=== PATIENT | male | born 1960 | race Caucasian/White ===

== ENCOUNTER 2021-09-05 17:27 | Inpatient (IN) | payer OTHER ==
[2021-09-05] MEDS ORDERED: ACETAMINOPHEN 1000 MG/100 ML BAG IVPB ONE (19:21)
[2021-09-05] MEDS ORDERED: ACETAMINOPHEN INJECTION 100 ML IVPB ONE (19:58)
[2021-09-05] MEDS ORDERED: DEXAMETHASONE SOD PHOSPHATE 10 MG/1 ML VIAL IVPUSH ONE (20:36)
[2021-09-05] MEDS ORDERED: ALBUTEROL SO4 2.5/IPRATROPIUM 0.5 INH SOL 3 ML VIAL.NEB. NEB ONE ×2 (20:36→21:07)
[2021-09-05 20:47] LABS: BASO % 0.4 % (0-2.0); EOS % 0.8 % (0-4.5); HEMATOCRIT 39.1 % (35.4-49); HEMOGLOBIN 12.6 GM/dL (11.7-16.9); LYMPH % 9.3 % (8-40); MCH 20.6 pg (25.7-33.7); MCHC 32.1 g/dl (32.0-35.9); MEAN PLT VOLUME 9.1 fl (7.5-11.1); MONO % 11.8 % (3.8-10.2); NEUT % 77.7 % (42.8-82.8); PLATELET COUNT 247 10^3/uL (134-434); RBC 6.11 M/mm3 (4.00-5.60); RDW 16.1 % (11.9-15.9); WHITE BLOOD COUNT 11.1 K/mm3 (4.0-10.0)
[2021-09-05 20:54] LABS: INR 1.36 (0.83-1.09); PROTHROMBIN TIME (PATIENT) 15.7 SEC (9.7-13.0)
[2021-09-05] MEDS ORDERED: CEFTRIAXONE 1 GM in DEXTROSE 5%-WATER - 100 ML IVPB ONE (20:55)
[2021-09-05] MEDS ORDERED: AZITHROMYCIN IVPB 500 MG in DEXTROSE 5%-WATER - 250 ML IVPB ONE (20:55)
[2021-09-05] MEDS ORDERED: SODIUM CHLORIDE 0.9% 500 ML INFUS.BAG IV ONE (20:56)
[2021-09-05 20:57] LABS: ACTIVATED PTT 27.4 SECONDS (25.2-36.5)
[2021-09-05] MEDS ORDERED: CEFTRIAXONE 1 GM/50 ML BAG ONE (21:07)
[2021-09-05] MEDS ORDERED: DEXAMETHASONE SOD PHOSPHATE 10 MG/1 ML VIAL ONE (21:07)
[2021-09-05 21:08] LABS: ALBUMIN 3.3 g/dl (3.4-5.0); BLOOD UREA NITROGEN 6.6 mg/dL (7-18); CALCIUM 9.3 mg/dL (8.5-10.1); MAGNESIUM 1.8 mg/dL (1.8-2.4)
[2021-09-05 21:11] LABS: CREATININE 0.8 mg/dL (0.55-1.3)
[2021-09-05 21:13] LABS: BILIRUBIN,TOTAL 0.6 mg/dL (0.2-1); TOT PROT 7.1 g/dl (6.4-8.2)
[2021-09-05 21:16] LABS: N-TERMINAL BNP 20.9 pg/ml (5-125)
[2021-09-05 22:20] LABS: ANISOCYTOSIS 2+; MACROCYTOSIS 0; PLATELET ESTIMATE NORMAL; TEAR DROP CELLS 1+
[2021-09-06] MEDS ORDERED: AZITHROMYCIN IVPB 500 MG/250 ML BAG IVPB ONE (00:19)
[2021-09-06] MEDS ORDERED: ACETAMINOPHEN 325 MG TABLET (FP) PO PRN (02:37)
[2021-09-06] MEDS ORDERED: ALBUTEROL SO4 2.5/IPRATROPIUM 0.5 INH SOL 3 ML VIAL.NEB. NEB PRN (03:05)
[2021-09-06] MEDS ORDERED: INSULIN (NOVOLOG) ASPART 100 UNITS/ML 10ML VIAL ONE ×3 (03:51→21:02)
[2021-09-06] MEDS: INSULIN SLIDING SCALE (NOVOLOG) 1 VIAL SQ SCH ×5 (03:55→21:10)
[2021-09-06 05:08] VITALS: BMI 27.1
[2021-09-06 06:32] LABS: PH,URINE 7.5 (5.0-8.0); URINE APPEARANCE CLEAR; URINE BILIRUBIN NEGATIVE (NEGATIVE); URINE COLOR YELLOW; URINE GLUCOSE (UA) 3+ (NEGATIVE); URINE KETONE NEGATIVE (NEGATIVE); URINE LEUK ESTERASE NEGATIVE (NEGATIVE); URINE NITRITE NEGATIVE (NEGATIVE); URINE PROTEIN NEGATIVE (NEGATIVE)
[2021-09-06] MEDS ORDERED: INSULIN SLIDING SCALE (NOVOLOG) 1 VIAL SQ SCH (07:00)
[2021-09-06 08:52] LABS: BASO % 0.1 % (0-2.0); EOS % 0.1 % (0-4.5); HEMATOCRIT 38.9 % (35.4-49); HEMOGLOBIN 12.6 GM/dL (11.7-16.9); LYMPH % 5.9 % (8-40); MCH 20.9 pg (25.7-33.7); MCHC 32.4 g/dl (32.0-35.9); MEAN CELL VOLUME 64.4 fl (80-96); MONO % 5.9 % (3.8-10.2); PLATELET COUNT 259 10^3/uL (134-434); RBC 6.04 M/mm3 (4.00-5.60); RDW 16.1 % (11.9-15.9); WHITE BLOOD COUNT 10.1 K/mm3 (4.0-10.0)
[2021-09-06 09:07] LABS: CALCIUM 10.2 mg/dL (8.5-10.1)
[2021-09-06 09:08] LABS: ALBUMIN 3.5 g/dl (3.4-5.0); BLOOD UREA NITROGEN 13.1 mg/dL (7-18); MAGNESIUM 2.5 mg/dL (1.8-2.4)
[2021-09-06 09:11] LABS: PHOSPHOROUS 1.8 mg/dL (2.5-4.9)
[2021-09-06 09:12] LABS: BILIRUBIN,TOTAL 0.4 mg/dL (0.2-1); TOT PROT 7.6 g/dl (6.4-8.2)
[2021-09-06] MEDS ORDERED: NAPH,MB-DB/K PH,MBDB POWDER PACKET PO ONE (09:30)
[2021-09-06] MEDS ORDERED: predniSONE 20 MG TABLET (UD) PO SCH (10:00)
[2021-09-06] MEDS ORDERED: FLU VACC QS2021-22(6MOS UP)/PF 60 MCG/0.5 ML SYRINGE IM ONE (10:00)
[2021-09-06] MEDS ORDERED: INSULIN (LEVEMIR) 100 UNITS/ML UNITS SQ SCH (10:00)
[2021-09-06] MEDS: ENOXAPARIN NA (PORCINE) 40 MG/0.4 ML DISP.SYRIN SQ SCH (10:09)
[2021-09-06] MEDS: PANTOPRAZOLE 40 MG TABLET PO SCH (10:20)
[2021-09-06] MEDS: INSULIN (LEVEMIR) 100 UNITS/ML UNITS SQ SCH ×2 (10:20→21:10)
[2021-09-06] MEDS: AZITHROMYCIN IVPB 500 MG/250 ML BAG IVPB SCH (10:21)
[2021-09-06] MEDS: ASCORBIC ACID 500 MG TABLET (FP) PO SCH (14:08)
[2021-09-06] MEDS: DOCUSATE SODIUM 100 MG CAPSULE (FP) PO SCH (14:08)
[2021-09-06] MEDS: FE POLYSAC/CYANOCOBAL/FA COMBO CAPSULE PO SCH ×3 (15:12→21:09)
[2021-09-06] MEDS: CEFTRIAXONE 1 GM in SODIUM CHLORIDE 50 ML IVPB SCH (15:13)
[2021-09-06 15:46] LABS: BF WBC & OTHER NUCLEATED CELLS 44917 /mm3
[2021-09-06 16:03] LABS: BODY FLUID MONOCYTE 7 %
[2021-09-06] MEDS: ACETAMINOPHEN 1000 MG/100 ML BAG IVPB PRN (18:04)
[2021-09-06] MEDS: MELATONIN 5 MG TABLETS PO SCH (21:09)
[2021-09-07] MEDS: INSULIN SLIDING SCALE (NOVOLOG) 1 VIAL SQ SCH ×4 (06:13→21:08)
[2021-09-07] MEDS: INSULIN (LEVEMIR) 100 UNITS/ML UNITS SQ SCH ×2 (06:14→21:07)
[2021-09-07] MEDS: ACETAMINOPHEN 1000 MG/100 ML BAG IVPB PRN (06:36)
[2021-09-07 08:36] LABS: BASO % 0.2 % (0-2.0); EOS % 4.5 % (0-4.5); HEMATOCRIT 36.8 % (35.4-49); HEMOGLOBIN 11.9 GM/dL (11.7-16.9); LYMPH % 17.7 % (8-40); MCH 20.7 pg (25.7-33.7); MCHC 32.4 g/dl (32.0-35.9); MEAN CELL VOLUME 63.9 fl (80-96); MONO % 7.9 % (3.8-10.2); NEUT % 69.7 % (42.8-82.8); PLATELET COUNT 308 10^3/uL (134-434); RBC 5.76 M/mm3 (4.00-5.60); RDW 15.8 % (11.9-15.9); WHITE BLOOD COUNT 10.3 K/mm3 (4.0-10.0)
[2021-09-07 08:54] LABS: ALBUMIN 3.1 g/dl (3.4-5.0); BLOOD UREA NITROGEN 16.1 mg/dL (7-18); CALCIUM 9.7 mg/dL (8.5-10.1); MAGNESIUM 2.3 mg/dL (1.8-2.4)
[2021-09-07 08:57] LABS: CREATININE 0.9 mg/dL (0.55-1.3); PHOSPHOROUS 2.6 mg/dL (2.5-4.9)
[2021-09-07 08:59] LABS: BILIRUBIN,TOTAL 0.4 mg/dL (0.2-1); TOT PROT 7.1 g/dl (6.4-8.2)
[2021-09-07] MEDS: AZITHROMYCIN IVPB 500 MG/250 ML BAG IVPB SCH (09:58)
[2021-09-07] MEDS: PANTOPRAZOLE 40 MG TABLET PO SCH (09:58)
[2021-09-07] MEDS: DOCUSATE SODIUM 100 MG CAPSULE (FP) PO SCH (09:58)
[2021-09-07] MEDS: POLYETHYLENE GLYCOL (HEALTHYLAX) 3350 17 GM PACKET PO SCH ×2 (09:58→20:59)
[2021-09-07] MEDS: ASCORBIC ACID 500 MG TABLET (FP) PO SCH (09:58)
[2021-09-07] MEDS: FE POLYSAC/CYANOCOBAL/FA COMBO CAPSULE PO SCH ×2 (09:59→21:53)
[2021-09-07] MEDS: CHOLECALCIFEROL (VIT D3) 5000 UNITS (125 MCG) CAP PO SCH (10:00)
[2021-09-07] MEDS: ENOXAPARIN NA (PORCINE) 40 MG/0.4 ML DISP.SYRIN SQ SCH (10:01)
[2021-09-07] MEDS: CEFTRIAXONE 1 GM in SODIUM CHLORIDE 50 ML IVPB SCH ×2 (10:01→12:46)
[2021-09-07] MEDS ORDERED: MAG HYDROX/AL HYDROX/SIMETH 30 ML UNIT-DOSE CUP PO PRN (11:56)
[2021-09-07] MEDS ORDERED: INSULIN (NOVOLOG) ASPART 100 UNITS/ML 10ML VIAL ONE ×2 (11:57→20:53)
[2021-09-07] MEDS ORDERED: cefTRIAXone SODIUM 1 GM VIAL ONE (11:57)
[2021-09-07] MEDS ORDERED: SODIUM CHLORIDE 50 ML IVPB ONE (11:57)
[2021-09-07 18:10] LABS: SARS-CoV-2 NAA Not Detected (Not Detected)
[2021-09-07] MEDS: ACETAMINOPHEN 500 MG TABLET (FP) PO PRN (20:59)
[2021-09-07] MEDS: MELATONIN 5 MG TABLETS PO SCH (20:59)
[2021-09-07] MEDS: SENNOSIDES 8.6MG TABLET (FP) PO SCH (21:53)
[2021-09-07] MEDS ORDERED: traMADol HCL 50 MG TABLET PO ONE (22:36)
[2021-09-08] MEDS: ACETAMINOPHEN 500 MG TABLET (FP) PO PRN (03:31)
[2021-09-08] MEDS: INSULIN SLIDING SCALE (NOVOLOG) 1 VIAL SQ SCH ×4 (06:34→21:11)
[2021-09-08] MEDS: INSULIN (LEVEMIR) 100 UNITS/ML UNITS SQ SCH ×2 (06:34→21:12)
[2021-09-08] MEDS ORDERED: cefTRIAXone SODIUM 1 GM VIAL ONE ×2 (09:36→09:42)
[2021-09-08] MEDS ORDERED: SODIUM CHLORIDE 50 ML IVPB ONE ×2 (09:36→09:42)
[2021-09-08] MEDS: ENOXAPARIN NA (PORCINE) 40 MG/0.4 ML DISP.SYRIN SQ SCH (09:37)
[2021-09-08] MEDS: POLYETHYLENE GLYCOL (HEALTHYLAX) 3350 17 GM PACKET PO SCH ×2 (09:37→21:11)
[2021-09-08] MEDS: PANTOPRAZOLE 20 MG TABLET PO SCH (09:38)
[2021-09-08] MEDS: FE POLYSAC/CYANOCOBAL/FA COMBO CAPSULE PO SCH ×2 (09:38→21:11)
[2021-09-08] MEDS: ASCORBIC ACID 500 MG TABLET (FP) PO SCH (09:39)
[2021-09-08] MEDS: CEFTRIAXONE 1 GM in SODIUM CHLORIDE 50 ML IVPB SCH (09:39)
[2021-09-08] MEDS: CHOLECALCIFEROL (VIT D3) 5000 UNITS (125 MCG) CAP PO SCH (09:45)
[2021-09-08] MEDS: AZITHROMYCIN IVPB 500 MG/250 ML BAG IVPB SCH (09:45)
[2021-09-08 09:51] LABS: BASO % 0.8 % (0-2.0); EOS % 7.1 % (0-4.5); HEMATOCRIT 36.2 % (35.4-49); MCH 21.1 pg (25.7-33.7); MCHC 33.1 g/dl (32.0-35.9); MEAN CELL VOLUME 63.6 fl (80-96); MEAN PLT VOLUME 8.7 fl (7.5-11.1); MONO % 11.2 % (3.8-10.2); NEUT % 61.9 % (42.8-82.8); PLATELET COUNT 284 10^3/uL (134-434); RBC 5.69 M/mm3 (4.00-5.60); RDW 15.9 % (11.9-15.9); WHITE BLOOD COUNT 8.1 K/mm3 (4.0-10.0)
[2021-09-08 10:12] LABS: BLOOD UREA NITROGEN 19.6 mg/dL (7-18); CALCIUM 9.5 mg/dL (8.5-10.1)
[2021-09-08 10:16] LABS: BILIRUBIN,DIRECT 0.1 mg/dL (0.0-0.2)
[2021-09-08 10:18] LABS: BILIRUBIN,TOTAL 0.4 mg/dL (0.2-1); TOT PROT 6.7 g/dl (6.4-8.2)
[2021-09-08 10:36] LABS: MAGNESIUM 1.9 mg/dL (1.8-2.4)
[2021-09-08] MEDS ORDERED: MINERAL OIL ENEMA 133 ML ENEMA PR ONE (11:17)
[2021-09-08] MEDS: oxyCODONE HCL 5 MG TABLET PO PRN (13:13)
[2021-09-08] MEDS: ACETAMINOPHEN 1000 MG/100 ML BAG IVPB PRN (14:34)
[2021-09-08 16:09] LABS: BODY FLUID ALBUMIN 3.5 g/dL (Not Estab.)
[2021-09-08] MEDS ORDERED: INSULIN (NOVOLOG) ASPART 100 UNITS/ML 10ML VIAL ONE (21:02)
[2021-09-08] MEDS: SENNOSIDES 8.6MG TABLET (FP) PO SCH (21:10)
[2021-09-08] MEDS: MELATONIN 5 MG TABLETS PO SCH (21:10)
[2021-09-08] MEDS ORDERED: QUEtiapine FUMARATE 25 MG TABLET PO SCH (22:00)
[2021-09-09] MEDS: oxyCODONE HCL 5 MG TABLET PO PRN ×3 (00:08→15:49)
[2021-09-09] MEDS: ACETAMINOPHEN 325 MG TABLET (FP) PO PRN ×3 (00:09→15:48)
[2021-09-09] MEDS: ACETAMINOPHEN 1000 MG/100 ML BAG IVPB PRN (01:01)
[2021-09-09] MEDS: INSULIN SLIDING SCALE (NOVOLOG) 1 VIAL SQ SCH ×4 (06:57→21:38)
[2021-09-09] MEDS: INSULIN (LEVEMIR) 100 UNITS/ML UNITS SQ SCH ×2 (06:57→21:38)
[2021-09-09 09:08] LABS: BASO % 0.7 % (0-2.0); EOS % 4.4 % (0-4.5); HEMATOCRIT 38.7 % (35.4-49); HEMOGLOBIN 12.6 GM/dL (11.7-16.9); MCH 20.7 pg (25.7-33.7); MCHC 32.6 g/dl (32.0-35.9); MEAN CELL VOLUME 63.4 fl (80-96); MEAN PLT VOLUME 8.2 fl (7.5-11.1); MONO % 10.7 % (3.8-10.2); NEUT % 68.2 % (42.8-82.8); PLATELET COUNT 300 10^3/uL (134-434); RBC 6.11 M/mm3 (4.00-5.60); RDW 15.3 % (11.9-15.9); WHITE BLOOD COUNT 9.6 K/mm3 (4.0-10.0)
[2021-09-09 09:29] LABS: CALCIUM 10.1 mg/dL (8.5-10.1)
[2021-09-09 09:30] LABS: BLOOD UREA NITROGEN 15.2 mg/dL (7-18)
[2021-09-09 09:35] LABS: CREATININE 0.9 mg/dL (0.55-1.3)
[2021-09-09] MEDS ORDERED: SODIUM CHLORIDE 50 ML IVPB ONE (09:45)
[2021-09-09] MEDS ORDERED: cefTRIAXone SODIUM 1 GM VIAL ONE (09:45)
[2021-09-09] MEDS: POLYETHYLENE GLYCOL (HEALTHYLAX) 3350 17 GM PACKET PO SCH ×2 (10:04→21:28)
[2021-09-09] MEDS: ENOXAPARIN NA (PORCINE) 40 MG/0.4 ML DISP.SYRIN SQ SCH (10:04)
[2021-09-09] MEDS: CHOLECALCIFEROL (VIT D3) 5000 UNITS (125 MCG) CAP PO SCH (10:04)
[2021-09-09] MEDS: ASCORBIC ACID 500 MG TABLET (FP) PO SCH (10:05)
[2021-09-09] MEDS: PANTOPRAZOLE 20 MG TABLET PO SCH (10:05)
[2021-09-09] MEDS: FE POLYSAC/CYANOCOBAL/FA COMBO CAPSULE PO SCH ×2 (10:05→21:29)
[2021-09-09] MEDS: CEFTRIAXONE 1 GM in SODIUM CHLORIDE 50 ML IVPB SCH (10:17)
[2021-09-09 10:43] LABS: ANISOCYTOSIS 2+; MACROCYTOSIS 0; OVALOCYTE 1+; PLATELET ESTIMATE NORMAL; TEAR DROP CELLS 1+
[2021-09-09] MEDS ORDERED: INSULIN (NOVOLOG) ASPART 100 UNITS/ML 10ML VIAL ONE ×2 (10:54→20:20)
[2021-09-09] MEDS: AZITHROMYCIN IVPB 500 MG/250 ML BAG IVPB SCH (10:59)
[2021-09-09] MEDS: SENNOSIDES 8.6MG TABLET (FP) PO SCH (21:29)
[2021-09-09] MEDS: MELATONIN 5 MG TABLETS PO SCH (21:29)
[2021-09-09] MEDS: QUEtiapine FUMARATE 50 MG TABLET PO SCH (21:29)
[2021-09-10 01:06] LABS: SARS-CoV-2 NAA Not Detected (Not Detected)
[2021-09-10] MEDS: oxyCODONE HCL 5 MG TABLET PO PRN ×2 (05:46→20:00)
[2021-09-10] MEDS: ACETAMINOPHEN 325 MG TABLET (FP) PO PRN ×2 (05:47→19:59)
[2021-09-10] MEDS: INSULIN SLIDING SCALE (NOVOLOG) 1 VIAL SQ SCH ×4 (06:58→21:11)
[2021-09-10] MEDS: INSULIN (LEVEMIR) 100 UNITS/ML UNITS SQ SCH ×2 (06:58→21:10)
[2021-09-10] MEDS ORDERED: cefTRIAXone SODIUM 1 GM VIAL ONE (08:01)
[2021-09-10] MEDS ORDERED: SODIUM CHLORIDE 50 ML IVPB ONE (08:02)
[2021-09-10] MEDS: ENOXAPARIN NA (PORCINE) 40 MG/0.4 ML DISP.SYRIN SQ SCH (09:27)
[2021-09-10] MEDS: PANTOPRAZOLE 20 MG TABLET PO SCH (09:28)
[2021-09-10] MEDS: POLYETHYLENE GLYCOL (HEALTHYLAX) 3350 17 GM PACKET PO SCH ×2 (09:28→21:10)
[2021-09-10] MEDS: ASCORBIC ACID 500 MG TABLET (FP) PO SCH (09:28)
[2021-09-10] MEDS: CEFTRIAXONE 1 GM in SODIUM CHLORIDE 50 ML IVPB SCH (09:28)
[2021-09-10] MEDS: AZITHROMYCIN IVPB 500 MG/250 ML BAG IVPB SCH (09:30)
[2021-09-10] MEDS: CHOLECALCIFEROL (VIT D3) 5000 UNITS (125 MCG) CAP PO SCH (09:37)
[2021-09-10] MEDS: FE POLYSAC/CYANOCOBAL/FA COMBO CAPSULE PO SCH ×2 (09:37→21:10)
[2021-09-10] MEDS: MELATONIN 5 MG TABLETS PO SCH (21:10)
[2021-09-10] MEDS: SENNOSIDES 8.6MG TABLET (FP) PO SCH (21:12)
[2021-09-10] MEDS: QUEtiapine FUMARATE 50 MG TABLET PO SCH (21:12)
[2021-09-11] MEDS: INSULIN SLIDING SCALE (NOVOLOG) 1 VIAL SQ SCH ×2 (06:19→11:04)
[2021-09-11] MEDS: INSULIN (LEVEMIR) 100 UNITS/ML UNITS SQ SCH (06:19)
[2021-09-11] MEDS ORDERED: SODIUM CHLORIDE 50 ML IVPB ONE (09:27)
[2021-09-11] MEDS ORDERED: cefTRIAXone SODIUM 1 GM VIAL ONE (09:27)
[2021-09-11] MEDS: AZITHROMYCIN IVPB 500 MG/250 ML BAG IVPB SCH (09:35)
[2021-09-11] MEDS: ENOXAPARIN NA (PORCINE) 40 MG/0.4 ML DISP.SYRIN SQ SCH (09:35)
[2021-09-11] MEDS: POLYETHYLENE GLYCOL (HEALTHYLAX) 3350 17 GM PACKET PO SCH (09:35)
[2021-09-11] MEDS: PANTOPRAZOLE 20 MG TABLET PO SCH (09:35)
[2021-09-11] MEDS: oxyCODONE HCL 5 MG TABLET PO PRN (09:35)
[2021-09-11] MEDS: CEFTRIAXONE 1 GM in SODIUM CHLORIDE 50 ML IVPB SCH (09:35)
[2021-09-11] MEDS: FE POLYSAC/CYANOCOBAL/FA COMBO CAPSULE PO SCH (09:36)
[2021-09-11] MEDS: ASCORBIC ACID 500 MG TABLET (FP) PO SCH (09:36)
[2021-09-11] MEDS: CHOLECALCIFEROL (VIT D3) 5000 UNITS (125 MCG) CAP PO SCH (09:37)
[2021-09-11] MEDS: ACETAMINOPHEN 325 MG TABLET (FP) PO PRN (09:46)
[2021-09-11 10:26] LABS: HEMATOCRIT 36.5 % (35.4-49); HEMOGLOBIN 11.8 GM/dL (11.7-16.9); MCH 20.5 pg (25.7-33.7); MCHC 32.3 g/dl (32.0-35.9); MEAN CELL VOLUME 63.4 fl (80-96); MEAN PLT VOLUME 8.6 fl (7.5-11.1); PLATELET COUNT 328 10^3/uL (134-434); RBC 5.76 M/mm3 (4.00-5.60); RDW 15.2 % (11.9-15.9); WHITE BLOOD COUNT 7.8 K/mm3 (4.0-10.0)
[2021-09-11 10:47] LABS: CALCIUM 9.7 mg/dL (8.5-10.1)
[2021-09-11 10:48] LABS: BLOOD UREA NITROGEN 12.1 mg/dL (7-18)
[2021-09-11 10:51] LABS: CREATININE 0.9 mg/dL (0.55-1.3)
[2021-09-11 14:33] VITALS: BP 125/73; TEMP 97.9
[2021-09-11 15:48] VITALS: PULSE 105
== END 2021-09-11 17:40 | disposition home or self-care (01) | DRG 194 ==
LOC: JER 17:27 → JERBED 09-06 00:10 → J6S 09-06 04:22
PROVIDERS: ADMIT Internal Medicine
PROC: 0W993ZZ Drainage of Right Pleural Cavity, Percutaneous Approach (ICD-10-PCS; principal; 2021-09-06)
DX: J18.9 Pneumonia, unspecified organism (principal); J98.11 Atelectasis; J91.8 Pleural effusion in other conditions classified elsewhere; R44.3 Hallucinations, unspecified; N50.89 Other specified disorders of the male genital organs; D72.829 Elevated white blood cell count, unspecified; K29.00 Acute gastritis without bleeding; R35.0 Frequency of micturition; E83.52 Hypercalcemia; R07.1 Chest pain on breathing; F32.A Depression, unspecified; K59.09 Other constipation; E11.9 Type 2 diabetes mellitus without complications; I10 Essential (primary) hypertension; E78.5 Hyperlipidemia, unspecified; F17.210 Nicotine dependence, cigarettes, uncomplicated; N40.0 Benign prostatic hyperplasia without lower urinary tract symptoms; N28.1 Cyst of kidney, acquired
CPT/HCPCS: 36415; 71045-TC-FY; 71046-TC-FY; 71275-TC; 74177-TC; 76870-TC; 76942; 80048; 80053; 80076; 81003; 82042; 82105; 82150; 82272; 82306; 82310; 82465; 82607; 82728; 82746; 82945; 82962; 83021; 83036; 83540; 83550; 83605; 83615; 83690; 83735; 83880; 83970; 83986; 84100; 84157; 84439; 84443; 84478; 84484; 84702; 85025; 85027; 85045; 85379; 85610; 85660; 85730; 86480; 86738; 87040; 87070; 87075; 87077; 87102; 87116; 87205; 87206; 87210; 87804; 87807; 88108; 88305-TC; 93005; 93010; 94761; 99285-25; C9803; J1100; Q9967; U0003; U0005

== ENCOUNTER 2021-12-28 21:06 | Emergency (ER) | payer OTHER ==
[2021-12-28 21:15] VITALS: BP 112/74; PULSE 61; TEMP 98.1; BMI 27.1
[2021-12-29] MEDS ORDERED: SULFAMETHOXAZOLE/TRIMETHOPRIM 800MG/160MG D.S. TABLET PO ONE (01:53)
[2021-12-29] MEDS ORDERED: SULFAMETHOXAZOLE/TRIMETHOPRIM 800MG/160MG D.S. TABLET ONE (02:00)
== END 2021-12-29 02:03 | disposition home or self-care (01) ==
LOC: JER 21:06
PROC: 0H96XZZ Drainage of Back Skin, External Approach (ICD-10-PCS; principal; 2021-12-28)
DX: L02.212 Cutaneous abscess of back [any part, except buttock and flank] (principal)
CPT/HCPCS: 10060; 99283-25

== ENCOUNTER 2025-01-20 04:45 | Emergency (ER) | payer OTHER ==
[2025-01-20 04:52] VITALS: BMI 26.8
[2025-01-20 05:12] LABS: ABSOLUTE IMMATURE GRANULOCYTES 0.04 x10^3/uL (0.0-0.031); BASOPHILS # 0.07 x10^3/uL (0.01-0.08); EOSINOPHIL % 3.1 % (0.8-7.0); EOSINOPHILS # 0.31 x10^3/uL (0.04-0.54); MCHC 31.5 g/dl (32.3-36.5); MEAN CELL VOLUME 64.5 fl (79.0-92.2); MEAN PLT VOLUME 9.8 fl (9.4-12.4); MONOCYTE # 1.25 x10^3/uL (0.30-0.82); MONOCYTE % 12.4 % (5.3-12.2); RDW 18.1 % (12.2-16.4)
[2025-01-20] MEDS ORDERED: FAMOTIDINE 20 MG/50 ML IVPB 20 MG/50 ML MG IVPB ONE (05:12)
[2025-01-20] MEDS ORDERED: ACETAMINOPHEN INJECTION 100 ML ONE (05:12)
[2025-01-20] MEDS: ACETAMINOPHEN 1000 MG/100 ML BAG IVPB ONE (05:17)
[2025-01-20] MEDS: FAMOTIDINE 20 MG/50 ML IVPB 20 MG/50 ML MG IVPB ONE (05:17)
[2025-01-20 05:33] LABS: CO2 21.0 mmol/L (21-32); GLUCOSE,RANDOM 104.0 mg/dL (74-106)
[2025-01-20 05:36] LABS: CREATININE 0.9 mg/dL (0.55-1.3); SGOT/AST 25.0 U/L (15-37); SGPT/ALT 36.0 U/L (13-61)
[2025-01-20 05:38] LABS: TOT PROT 7.7 g/dl (6.4-8.2)
[2025-01-20 05:39] LABS: ALK PHOS 168.0 U/L (45-117)
[2025-01-20] MEDS: SODIUM CHLORIDE 0.9% 500 ML INFUS.BAG IV ONE (06:26)
[2025-01-20 06:57] LABS: HIV INTERPRETATION NEGATIVE (NEGATIVE)
[2025-01-20] MEDS ORDERED: IBUPROFEN 400 MG TABLET (FP) PO ONE (08:15)
[2025-01-20] MEDS: IBUPROFEN 400 MG TABLET (FP) PO ONE (08:19)
[2025-01-20 09:12] VITALS: BP 142/75; PULSE 78; RESP 18; TEMP 98
[2025-01-20 16:27] LABS: HCV DIAGNOSTIC IN-HOUSE W/RFLX NON-REACTIVE (NONREACTIVE)
== END 2025-01-20 09:00 | disposition home or self-care (01) ==
LOC: JER 04:45
PROC: 3E033GC Introduction of Other Therapeutic Substance into Peripheral Vein, Percutaneous Approach (ICD-10-PCS; principal; 2025-01-20)
PROC: 3E033NZ Introduction of Analgesics, Hypnotics, Sedatives into Peripheral Vein, Percutaneous Approach (ICD-10-PCS; 2025-01-20)
DX: R07.9 Chest pain, unspecified (principal); R06.02 Shortness of breath; M79.601 Pain in right arm; M79.602 Pain in left arm; M79.604 Pain in right leg; M79.605 Pain in left leg; R60.0 Localized edema; R51.9 Headache, unspecified; F10.90 Alcohol use, unspecified, uncomplicated; Y90.0 Blood alcohol level of less than 20 mg/100 ml
CPT/HCPCS: 36415; 71045-TC-FY; 71275-TC; 80053; 80307; 83735; 84484; 85025; 85379; 86803; 87389; 93005; 93010; 99285-25; Q9967